=== PATIENT | male | born 1955 | race Caucasian/White ===

== ENCOUNTER 2023-04-15 20:03 | Emergency (ER) | payer MEDICARE ==
[~2023-04-15] VITALS: Ht 190.5 cm; Wt 83.9 kg
[2023-04-15 20:14] VITALS: BP 125/66; TEMP 98; O2SAT 97
== END 2023-04-15 21:19 | disposition left against medical advice (07) ==
LOC: ER 20:06
DX: H92.03 Otalgia, bilateral (principal); Z53.21 Procedure and treatment not carried out due to patient leaving prior to being seen by health care provider